=== PATIENT | female | born 1990 | race Caucasian/White ===

== ENCOUNTER → 2020-10-26 13:15 | Outpatient (CLI) | payer OTHER, SELFPAY ==
--- NOTE | ~2020-10-26 | XR_ITS ---
EXAMINATION: XR thoracic spine 3V, XR lumbar spine 2-3V DATE: 10/26/2020 14:13 INDICATION: Back pain TECHNIQUE: 1. One AP, lateral and lateral swimmer's views of the thoracic spine were obtained. 2. AP, lateral and coned-down lateral lumbosacral views of the lumbar spine were obtained. COMPARISON: None. FINDINGS: Thoracic spine: 12 degrees lower thoracic vertebral scoliosis. Sagittal alignment is normal. Vertebral body and disc heights are normal. Visualized portions of the lungs are clear with no pleural effusion or pneumothor ax. Cardiomediastinal silhouette is normal. Lumbar spine: 5 degrees lumbar dextrocurvature. Sagittal alignment is normal. Vertebral body and disc heights are n ormal. Sacrum and bilateral sacral iliac joints are normal. Normal bowel gas pattern. IMPRESSION: 1. Lower thoracic levoscoliosis and minimal lumbar dextrocurvature. Reviewed, dictated and finalized at location A. IMPRESSION: 1. Lower thoracic levoscoliosis and minimal lumbar dextrocurvature.
== END ==
PROVIDERS: PCP Nurse Practitioner Family; Visit Provider Nurse Practitioner Family
DX: M54.9 Dorsalgia, unspecified (principal); M41.84 Other forms of scoliosis, thoracic region; M41.86 Other forms of scoliosis, lumbar region
CPT/HCPCS: 72072; 72100